=== PATIENT | male | born 1960 | race African-American/Black ===

== ENCOUNTER 2019-09-08 20:13 | Emergency (ER) | payer MEDICAID ==
[~2019-09-08] VITALS: Ht 172.7 cm; Wt 68.0 kg
[2019-09-08 22:44] LABS: CLARITY URINE CLOUDY (CLEAR); COLOR URINE YELLOW (YELLOW); KETONES URINE TRACE (NEGATIVE); LEUKOCYTE ESTERASE URINE 2+ (NEGATIVE); NITRITE URINE POSITIVE (NEGATIVE); OCCULT BLOOD URINE 2+ (NEGATIVE); PH URINE 7.5 (4.5-8.0); PROTEIN URINE 2+ (NEGATIVE); SPECIFIC GRAVITY URINE 1.028 (1.005-1.030)
[2019-09-09] VITALS: BP 139/82
== END 2019-09-09 02:27 | disposition home or self-care (01) ==
LOC: ER 20:13
DX: N39.0 Urinary tract infection, site not specified (principal); I10 Essential (primary) hypertension; F17.200 Nicotine dependence, unspecified, uncomplicated
CPT/HCPCS: 81003; 87077; 87186; 99283